=== PATIENT | female | born 1970 | race Caucasian/White ===

== ENCOUNTER → 2018-08-19 | Outpatient (CLI) | payer BC ==
[~2018-08-19] MED LIST: IOHEXOL 350 MG/ML 100 ML (OMNIPAQUE 350) VIAL IV ONE; NAPR-243 PO; NS 250 ML (IVPB) BAG IV ONE
--- NOTE | 2018-08-19 09:40 | Diagnostic Imaging Report ---
PROCEDURE: CT abdomen and pelvis with contrast. TECHNIQUE: Multiple contiguous axial images were obtained through the abdomen and pelvis after administration of intravenous contrast. INDICATION: Right lower quadrant abdominal pain. FINDINGS: No focal hepatic or splenic lesion is identified. Gallbladder, pancreas and adrenal glands are also unremarkable. No renal abnormality is seen. There is no free fluid or evidence of pathologic adenopathy in the abdomen. Partially opacified urinary bladder is a normal appearance. There is no evidence of appendiceal inflammation. No organized fluid collection is identified. Nodular structures and inguinal regions are likely due to varices with occasional small inguinal lymph nodes. IMPRESSION: No CT evidence of acute abnormality within the abdomen or pelvis. Dictated by: Dictated on workstation # [id number]
== END ==
LOC: RAD 08:49
PROVIDERS: ATTEND Family Medicine
DX: R10.31 Right lower quadrant pain (principal); R10.13 Epigastric pain; R19.7 Diarrhea, unspecified
CPT/HCPCS: 74177

== ENCOUNTER → 2018-09-21 | Outpatient (CLI) | payer BC ==
[~2018-09-21] MED LIST changes: +CYCL10TA9 PO; -IOHEXOL 350 MG/ML 100 ML (OMNIPAQUE 350) VIAL IV ONE; -NS 250 ML (IVPB) BAG IV ONE
--- NOTE | 2018-09-21 11:36 | Diagnostic Imaging Report ---
PROCEDURE: US Gallbladder. TECHNIQUE: Multiple real-time grayscale images were obtained over the right upper quadrant in various projections. INDICATION: Abdominal pain. FINDINGS: The liver is normal in size at 16 cm. No discrete liver mass is identified. The gallbladder is without stones or sludge. No wall thickening or biliary ductal dilatation is seen. Pancreas was obscured by bowel gas. The right kidney is unremarkable. There is no ascites. IMPRESSION: No evidence of cholelithiasis or acute cholecystitis. Dictated by: Dictated on workstation # [id number]
== END ==
LOC: RAD 07:34
PROVIDERS: ATTEND Surgery
DX: R10.9 Unspecified abdominal pain (principal)
CPT/HCPCS: 76705

== ENCOUNTER → 2018-09-23 | Outpatient (CLI) | payer BC ==
[~2018-09-23] MED LIST changes: +CATHETER FLUSH 10 ML SYR IV PRN
--- NOTE | 2018-09-23 09:28 | Diagnostic Imaging Report ---
HEPATOBILIARY SCAN DATE: September 23, 2018. INDICATION: 48-year-old female, abdominal pain. PROCEDURE: 5.30 mCi of Tc-99m choletec was administered intravenously and serial anterior planar images over the liver and upper abdomen were obtained. FINDINGS: There is homogenous activity throughout the liver with good clearance of background activity. This indicates good hepatocellular function. Biliary tree activity is seen at 10 minutes. The gallbladder is seen at 15 minutes. There is no enterogastric reflux. The biliary tree is patent. There is no evidence of acute cholecystitis. Ensure was administered. Gallbladder ejection fraction was calculated to be 84%. IMPRESSION: Normal hepatobiliary scan. No evidence of acute or chronic cholecystitis. Dictated by: Dictated on workstation # [id number]
== END ==
LOC: CARD 06:34
PROVIDERS: ATTEND Surgery
DX: R10.9 Unspecified abdominal pain (principal)
CPT/HCPCS: 78227

== ENCOUNTER 2018-09-25 08:03 | Emergency (ER) | payer BC ==
[~2018-09-25] VITALS: Ht 162.6 cm; Wt 81.6 kg
[~2018-09-25 08:03] MED LIST changes: -CATHETER FLUSH 10 ML SYR IV PRN; -CYCL10TA9 PO
[2018-09-25 09:14] LABS: BASOPHILS % (AUTO) 0 % (0-10); BILIRUBIN,URINE NEGATIVE (NEGATIVE); CLARITY,URINE CLEAR; COLOR,URINE YELLOW; EOSINOPHILS # (AUTO) 0.1 10^3/uL (0.0-0.3); EOSINOPHILS % (AUTO) 1 % (0-10); GLUCOSE, URINE (UA) NEGATIVE (NEGATIVE); HEMATOCRIT 39 % (35-52); KETONES,URINE NEGATIVE (NEGATIVE); LEUKOCYTE ESTERASE ,URINE 1+ (NEGATIVE); LYMPHOCYTES # (AUTO) 2.2 X 10^3 (1.0-4.0); LYMPHOCYTES % (AUTO) 27 % (12-44); MEAN CORPUSCULAR HEMOGLOBIN 30 PG (25-34); MEAN CORPUSCULAR HGB CONC 33 G/DL (32-36); MEAN CORPUSCULAR VOLUME 90 FL (80-99); MEAN PLATELET VOLUME 9.3 FL (7.4-10.4); MONOCYTES # (AUTO) 0.6 X 10^3 (0.0-1.0); MONOCYTES % (AUTO) 7 % (0-12); NEUTROPHILS # (AUTO) 5.4 X 10^3 (1.8-7.8); NEUTROPHILS % (AUTO) 65 % (42-75); NITRITE,URINE NEGATIVE (NEGATIVE); PH,URINE 5 (5-9); PLATELET COUNT 342 10^3/uL (130-400); PROTEIN,URINE NEGATIVE (NEGATIVE); RED BLOOD COUNT 4.39 10^6/uL (4.35-5.85); RED CELL DISTRIBUTION WIDTH 12.7 % (10.0-14.5); UROBILINOGEN,URINE NORMAL (NORMAL); WHITE BLOOD COUNT 8.3 10^3/uL (4.3-11.0)
[2018-09-25 09:22] LABS: BACTERIA,URINE NEGATIVE /HPF; WBC,URINE RARE /HPF
[2018-09-25 09:28] LABS: ALANINE AMINOTRANSFERASE 21 U/L (0-55); ALBUMIN 4.6 GM/DL (3.2-4.5); ALKALINE PHOSPHATASE 66 U/L (40-136); AMYLASE 44 U/L (25-125); BILIRUBIN,TOTAL 0.4 MG/DL (0.1-1.0); BUN/CREATININE RATIO 15; CALCIUM 10.1 MG/DL (8.5-10.1); CARBON DIOXIDE 24 MMOL/L (21-32); CHLORIDE 105 MMOL/L (98-107); CREATININE SERUM 0.74 MG/DL (0.60-1.30); GFR ESTIMATED > 60; GLUCOSE 98 MG/DL (70-105); LIPASE 11 U/L (8-78); POTASSIUM 3.9 MMOL/L (3.6-5.0); SODIUM 140 MMOL/L (135-145); TOTAL PROTEIN 8.3 GM/DL (6.4-8.2)
[2018-09-25] MEDS ORDERED: KETOROLAC 30 MG/ML VIAL IVP STA (10:15)
--- NOTE | 2018-09-25 10:36 | ED Abdominal Pain ---
General Chief Complaint: Abdominal/GI Problems Stated Complaint: PAIN L ABD/BACK Nursing Triage Note: PT CO OF ABD PAIN FOR APPROX 1 MONTH ON AND OFF HAS HAD NUMEROUS TESTS PAST COUPLE WEEKS TO CHECK ON GALLBLADDER PROBLEMS. PT DENIES PAIN AT THIS X BUT WAS 10/10 WHEN OCCURRED EARLIER ON L SIDE ABD Sepsis Screen: No Definite Risk Source of Information: Patient Exam Limitations: No Limitations History of Present Illness Date Seen by Provider: Sep 25, 2018 Time Seen by Provider: 10:00 Initial Comments Here with report of left-sided back pain and abdominal pain in the epigastric region. She is concerned about her gallbladder. She has been evaluated and has appointment with Dr. Terry tomorrow. Recently had gallbladder ultrasound and HIDA scan and they're looking for gallbladder as cause for this. Also admits that she's been doing a moderate amount of lifting at work and has possibility of muscle strain to the back on the left side. She has not taken anything for that at this point. Denies nausea or vomiting. Overall feels a little better currently. Timing/Duration: 1 Week, Intermittent Severity/Quality: Mild, Moderate, Aching Location: Epigastric Radiation: Back Activities at Onset: None Associated Symptoms: Back Pain; No Fever/Chills, No Nausea/Vomiting, No Shortness of Air, No Weakness Allergies and Home Medications Allergies Coded Allergies: No Known Drug Allergies (Verified , 04/06/08) Patient Home Medication List Home Medication List Reviewed: Yes Review of Systems Review of Systems Constitutional: see HPI; No chills, No fever Respiratory: No Symptoms Reported Cardiovascular: No Symptoms Reported Gastrointestinal: Abdominal Pain; Denies Diarrhea, Denies Nausea Genitourinary: No Symptoms Reported Musculoskeletal: back pain, muscle pain Skin: no symptoms reported All Other Systems Reviewed Negative Unless Noted: Yes Past Atwdqeu-Xqjhyl-Gqmetd Hx Past Med/Social Hx: Reviewed Nursing Past Med/Soc Hx Patient Social History Alcohol Use: Denies Use Recreational Drug Use: No Smoking Status: Never a Smoker Recent Foreign Travel: No Contact w/Someone Who Travel: No Recent Infectious Disease Expo: No Recent Hopitalizations: No Past Medical History Surgeries: Yes (D & C) Respiratory: No Cardiac: No Neurological: No Reproductive Disorders: Yes [employer] History: Menopausal Gastrointestinal: No Musculoskeletal: No Endocrine: No Psychosocial: No Blood Disorders: No Family Medical History Reviewed Nursing Family Hx Physical Exam Vital Signs Vital Signs - First Documented 09/25/18 08:35 Temp 97.5 Pulse 76 Resp 18 B/P (MAP) 141/81 (101) Pulse Ox 100 Capillary Refill : Less Than 3 Seconds Height/Weight/BMI Height: 5'4.00" Weight: 180lbs. oz. 81.500597bk; BMI Method:Stated General Appearance: WD/WN, no apparent distress HEENT: PERRL/EOMI, pharynx normal Neck: full range of motion, supple Respiratory: lungs clear, normal breath sounds Cardiovascular: regular rate, rhythm, no murmur Gastrointestinal: non tender, soft Extremities: non-tender, normal inspection Neurologic/Psychiatric: alert, oriented x 3 Skin: normal color, warm/dry Progress/Results/Core Measures Results/Orders Lab Results Laboratory Tests Test 09/25/18 08:40 Range/Units White Blood Count 8.3 4.3-11.0 10^3/uL Red Blood Count 4.39 4.35-5.85 10^6/uL Hemoglobin 13.0 11.5-16.0 G/DL Hematocrit 39 35-52 % Mean Corpuscular Volume 90 80-99 FL Mean Corpuscular Hemoglobin 30 25-34 PG Mean Corpuscular Hemoglobin Concent 33 32-36 G/DL Red Cell Distribution Width 12.7 10.0-14.5 % Platelet Count 342 130-400 10^3/uL Mean Platelet Volume 9.3 7.4-10.4 FL Neutrophils (%) (Auto) 65 42-75 % Lymphocytes (%) (Auto) 27 12-44 % Monocytes (%) (Auto) 7 0-12 % Eosinophils (%) (Auto) 1 0-10 % Basophils (%) (Auto) 0 0-10 % Neutrophils # (Auto) 5.4 1.8-7.8 X 10^3 Lymphocytes # (Auto) 2.2 1.0-4.0 X 10^3 Monocytes # (Auto) 0.6 0.0-1.0 X 10^3 Eosinophils # (Auto) 0.1 0.0-0.3 10^3/uL Basophils # (Auto) 0.0 0.0-0.1 10^3/uL Urine Color YELLOW Urine Clarity CLEAR Urine pH 5 5-9 Urine Specific [place] 1.025 H 1.016-1.022 Urine Protein NEGATIVE NEGATIVE Urine Glucose (UA) NEGATIVE NEGATIVE Urine Ketones NEGATIVE NEGATIVE Urine Nitrite NEGATIVE NEGATIVE Urine Bilirubin NEGATIVE NEGATIVE Urine Urobilinogen NORMAL NORMAL MG/DL Urine Leukocyte Esterase 1+ H NEGATIVE Urine RBC (Auto) 2+ H NEGATIVE Urine RBC NONE /HPF Urine WBC RARE /HPF Urine Squamous Epithelial Cells 2-5 /HPF Urine Crystals NONE /LPF Urine Bacteria NEGATIVE /HPF Urine Casts NONE /LPF Urine Mucus NEGATIVE /LPF Urine Culture Indicated NO Sodium Level 140 135-145 MMOL/L Potassium Level 3.9 3.6-5.0 MMOL/L Chloride Level 105 98-107 MMOL/L Carbon Dioxide Level 24 21-32 MMOL/L Anion Gap 11 5-14 MMOL/L Blood Urea Nitrogen 11 7-18 MG/DL Creatinine 0.74 0.60-1.30 MG/DL Estimat Glomerular Filtration Rate > 60 BUN/Creatinine Ratio 15 Glucose Level 98 70-105 MG/DL Calcium Level 10.1 8.5-10.1 MG/DL Corrected Calcium 8.5-10.1 MG/DL Total Bilirubin 0.4 0.1-1.0 MG/DL Aspartate Amino Transf (AST/SGOT) 18 5-34 U/L Alanine Aminotransferase (ALT/SGPT) 21 0-55 U/L Alkaline Phosphatase 66 40-136 U/L Total Protein 8.3 H 6.4-8.2 GM/DL Albumin 4.6 H 3.2-4.5 GM/DL Amylase Level 44 25-125 U/L Lipase 11 8-78 U/L My Orders Orders - CLARITA FARR MD Comprehensive Metabolic Panel (09/25/18 09:04) Lipase (09/25/18 09:04) Amylase (09/25/18 09:04) Ua Culture If Indicated (09/25/18 09:04) Cbc With Automated Diff (09/25/18 09:04) Ketorolac Injection (Toradol Injection) (09/25/18 10:15) Vital Signs/I&O 09/25/18 08:35 Temp 97.5 Pulse 76 Resp 18 B/P (MAP) 141/81 (101) Pulse Ox 100 Blood Pressure Mean: 101 Progress Progress Note : Progress Note Seen and evaluated. IV, labs ordered. UA ordered. On her patient. Toradol 30 mg IV. No acute findings. I have reviewed previous evaluation including HIDA scan gallbladder ultrasound. No acute findings there. No indications of significant abnormality currently. She has appointment with Dr. Terry tomorrow. Given her work environment and lifting requirements, this may be related to musculoskeletal strain. She does need further evaluation. The surgeon for possible endoscopy and she has that appointment tomorrow. Discharged home with return precautions. Patient verbalize understanding instructions and agreement with plan. Departure Impression Primary Impression: Epigastric abdominal pain Additional Impression: Back strain Qualified Codes: S39.012A - Strain of muscle, fascia and tendon of lower back , initial encounter Disposition: HOME, SELF-CARE Condition: Improved Departure-Patient Inst. Decision time for Depature: 10:57 Referrals: JORGE L RAM (PCP) Primary Care Physician LESLYE BRADLEY MD (Family) Primary Care Physician Patient Instructions: Acute Abdomen (Belly Pain), Adult (DC), Muscle Strain (DC ) Add. Discharge Instructions: All discharge instructions reviewed with patient and/or family. Voiced understanding. You may take Tylenol/acetaminophen 1000 mg every 8 hours as needed for pain. Follow-up with Dr. Terry tomorrow as scheduled. Return for worse pain, fever, vomiting, weakness, breathing problems or other concerns as needed. Eat a light diet and avoid fatty foods. Scripts Cyclobenzaprine HCl (Cyclobenzaprine HCl) 10 Mg Tablet 10 MG PO Q8H PRN for SPASMS, #15 TAB 0 Refills Prov: CLARITA FARR MD 09/25/18 CLARITA FARR MD Sep 25, 2018 10:36
[2018-09-25] MEDS ORDERED: CYCL10TA9 PO (10:59)
[2018-09-25 11:17] VITALS: BP 141/81
== END 2018-09-25 11:20 | disposition home or self-care (01) ==
LOC: EDUNIT# 08:03 → ER 08:04
DX: S39.012A Strain of muscle, fascia and tendon of lower back, initial encounter (principal); R10.13 Epigastric pain; X50.1XXA Overexertion from prolonged static or awkward postures, initial encounter; Y92.59 Other trade areas as the place of occurrence of the external cause; Y99.0 Civilian activity done for income or pay
CPT/HCPCS: 36415; 80053; 81000; 82150; 83690; 85025

== ENCOUNTER 2018-09-30 05:29 | Outpatient (CLI) | payer BC ==
[~2018-09-30] VITALS: Ht 162.6 cm; Wt 91.4 kg
[~2018-09-30 05:29] MED LIST changes: +CYCL10TA9 PO
[2018-10-03] MEDS ORDERED: DOCU-143 PO (15:45)
[2018-10-03] MEDS ORDERED: ACHD5005 PO (15:45)
== END 2018-09-30 08:54 | disposition home or self-care (01) ==
LOC: PREOP 05:29
PROVIDERS: ATTEND Surgery
DX: Z01.818 Encounter for other preprocedural examination (principal)
CPT/HCPCS: 87081

== ENCOUNTER → 2018-10-03 | Day surgery (SDC) | payer BC ==
[~2018-10-03] VITALS: Ht 162.6 cm; Wt 91.4 kg
[~2018-10-03] MED LIST changes: +ACHD5005 PO; +BUPIVACAINE 0.5% 30 ML (SENSORCAINE) VIAL ONE; +DEXAMETHASONE 10 MG/ML (DECADRON) 1 ML VIAL ONE; +DOCU-143 PO; +GLYCOPYRROLATE 0.2 MG/ML (ROBINUL) 2 ML VIAL ONE; +LACTATED RINGERS 1,000 ML IV ONE; +LIDOCAINE 1% INJ 20 ML 20 ML VIAL ONE; +LIDOCAINE PF 2% 5 ML (XYLOCAINE) VIAL ONE; +MIDAZOLAM 2 MG/2 ML (VERSED) VIAL ONE; +NEOSTIGMINE 1 MG/ML 5 ML SYRINGE ONE; +ONDANSETRON 4 MG/2 ML (SDV) Z0FRAN IVP PRN; +ROCURONIUM 10 MG/ML 5 ML SYRINGE IV ONE; +SEVOFLURANE (ULTANE) 15 ML INHAL SOLN ONE; +ceFAZolin 2 GM IV Premixed 50 ML IV ONE; +fentaNYL INJECTION 100 MCG/2 ML AMP ONE; +morphine INJ 10 MG/ML 1ML (SYR OR VIAL) IVP ONE; +proPOfol 200 MG/20 ML (DIPRIVAN) VIAL IV ONE
[2018-10-03 09:30] VITALS: BP 136/78
[2018-10-03] MEDS: LACTATED RINGERS 1,000 ML IV PRN ×2 (09:54→15:45)
--- NOTE | 2018-10-03 14:11 | Progress Note-Pre Operative ---
Pre-Operative Progress Note H&P Reviewed The H&P was reviewed, patient examined and no changes noted. Date Seen by Provider: Oct 03, 2018 Time Seen by Provider: 14:10 Date H&P Reviewed: Oct 03, 2018 Time H&P Reviewed: 14:10 Pre-Operative Diagnosis: ruq abdominal biliary dyskinesia JEFF LAWLER DO Oct 03, 2018 14:11
--- NOTE | 2018-10-03 15:46 | Discharge Inst-Simple/Standard ---
Discharge Inst-Standard Discharge Medications New, Converted or Re-Newed RX: RX on Chart Patient Instructions/Follow Up Plan of Care/Instructions/FU: 2 weeks Mara Activity as Tolerated: No Discharge Diet: Regular Diet Other Inst to Patient Follow up Appt: Make appointment for 2 weeks. Instructions: No lifting greater than 10 pounds. No strenuous activity. May shower in 24 hours, no tub bath or soaking. Use incentive spirometer at home as directed. No Smoking Skin/Wound Care: You have special glue over incisions it will fall off on its own. Symptoms to Report: Appetite Changes, Extremity Discoloration, Numbness/Tingling, Swelling Increased , Bleeding Excessive, Eyesight Changes, Pain Increased, Urine Color Change, Constipation(Persistent), Fever over 101 degree F, Pain/Pressure in chest, Urinating Difficulty, Cough Up/Vomit Blood, Heart Beat Irreg/Pounding, Pain/ Pressure in jaw, Vaginal Bleeding Increase, Cramps in feet or legs, Lightheadedness, Pain/Pressure in shoulder, Diarrhea(Persistent), Memory Changes Suddenly, Questions/Concerns, Weight gain consecutive days, Dizziness/ Fainting, Nausea/Vomiting, Shortness of Breath, Weight gain over 2 pounds. If eyes or skin turn yellow notify physician. If questions or concerns contact your physician Or seek help at emergency department. JEFF LAWLER DO Oct 03, 2018 15:46
--- NOTE | 2018-10-03 15:47 | Progress Note-Post Operative ---
Post-Operative Progess Note Surgeon (s)/Grinder (s) Surgeon JEFF LAWLER DO Grinder: Dr. Griffin Pre-Operative Diagnosis ruq abdominal biliary dyskinesia Post-Operative Diagnosis same Procedure & Operative Findings Date of Procedure 10/03/18 Procedure Performed/Findings lap tianna c ioc Anesthesia Type gen Estimated Blood Loss Estimated blood loss (mL): min Specimens/Packing Specimens Removed gallbladder JEFF LAWLER DO Oct 03, 2018 15:47
--- NOTE | 2018-10-03 16:19 | Anesthesia-General Post-Op ---
General Patient Condition Mental Status/LOC: Same as Preop Cardiovascular: Satisfactory Nausea/Vomiting: Absent Respiratory: Satisfactory Pain: Controlled Complications: Absent Post Op Complications Complications None Follow Up Care/Instructions Patient Instructions None needed. Anesthesia/Patient Condition Patient Condition Patient is doing well, no complaints, stable vital signs, no apparent adverse anesthesia problems. No complications reported per nursing. YUE DAVIS CRNA Oct 03, 2018 16:19
[2018-10-03] MEDS: morphine INJ 10 MG/ML 1ML (SYR OR VIAL) ONE ×2 (16:26→17:19)
[2018-10-03 16:55] VITALS: BP 131/84
--- NOTE | 2018-10-03 16:55 | Diagnostic Imaging Report ---
INDICATION: Fluoroscopy for intraoperative cholangiogram. FINDINGS: Fluoroscopy was provided in the OR during intraoperative cholangiogram. 9 seconds of fluoroscopy was utilized. Images demonstrate contrast being injected via the cystic duct remnant. The intrahepatic and extrahepatic ducts are opacified and appear to be of normal caliber. No filling defects are seen to suggest a retained stone. There is contrast passing into the duodenum. IMPRESSION: Fluoroscopy during intraoperative cholangiogram. Dictated by: Dictated on workstation # [id number]
[2018-10-03 17:30] VITALS: BP 133/86
[2018-10-03 18:00] VITALS: BP 116/89
[2018-10-03 18:25] VITALS: BP 116/89
--- NOTE | 2018-10-04 03:05 | OPERATIVE REPORT ---
DATE OF SERVICE: 10/03/2018 PREOPERATIVE DIAGNOSIS: Right upper quadrant abdominal pain, biliary dyskinesia, hyperactive. POSTOPERATIVE DIAGNOSIS: Right upper quadrant abdominal pain, biliary dyskinesia, hyperactive. PROCEDURE: Laparoscopic cholecystectomy with intraoperative cholangiogram. SURGEON: Jeff Terry DO HOUSING INSPECTORS: Dr. Griffin, assisted in retraction, dissection and closure. ANESTHESIA: General. ESTIMATED BLOOD LOSS: Minimal. COMPLICATIONS: None. INDICATIONS: The patient is a 48-year-old female who had been having abdominal pain primarily right upper quadrant. She had a HIDA scan, had an ejection fraction of greater than 80%. She was discussed risks and benefits of having a cholecystectomy may or may not improve her symptoms. She understands risks and benefits and wished to proceed with procedure. Consent was signed on the chart. DESCRIPTION OF PROCEDURE: The patient was taken to the operating suite. She was prepped and draped in sterile fashion. Surgical pause was performed. Anthony technique was used to enter the abdomen just above the umbilicus. A 0 Vicryl was placed in a [id number] fashion for closure at the end. A balloon trocar was inserted in through the incision and pneumoperitoneum was achieved. Under direct visualization of the laparoscope, a 5 mm trocar was then placed in the subxiphoid region and two 5 mm trocars were placed in the right upper quadrant. Gallbladder was grasped, elevated. The cystic duct and cystic artery were then dissected around. Clips were placed on the proximal and distal portion of the cystic artery and a clip was placed on the distal portion of the cystic duct. The cystic duct was then partially transected and arrow catheter was then inserted and cholangiogram was performed. There were no filling defects. Contrast made its way into the duodenum without difficulty. The catheter was then removed. Clips were placed on the proximal portion of the cystic duct and the cystic duct and cystic arteries were then transected. Hook cautery was used to dissect the gallbladder from the gallbladder fossa achieving hemostasis. Once removed, it was placed in an Endobag and removed through the 12 mm trocar site. The abdomen was irrigated with copious amounts of irrigation and suction. The abdomen was then desufflated. Trocars were removed. The fascial defect with 0 Vicryl was then closed. The skin was then closed using 4-0 Monocryl in a subcuticular fashion. The abdomen was then washed and dried and Skin Affix was placed over the incisions. The patient tolerated procedure well without any complications. She was taken to recovery room in stable condition. Job ID: [id number] DocumentID: [id number] Dictated Date: 10/03/2018 16:37:37 Senior Structural Engineer Date: 10/04/2018 03:04:29 Dictated By: JEFF TERRY DO
== END | disposition home or self-care (01) ==
LOC: SDC 09:15
PROVIDERS: ATTEND Surgery
DX: K81.1 Chronic cholecystitis (principal); K82.8 Other specified diseases of gallbladder
CPT/HCPCS: 84703

== ENCOUNTER 2020-01-09 21:09 | Emergency (ER) | payer BC ==
[~2020-01-09] VITALS: Ht 157 cm; Wt 90.7 kg
[~2020-01-09 21:09] MED LIST changes: -BUPIVACAINE 0.5% 30 ML (SENSORCAINE) VIAL ONE; -DEXAMETHASONE 10 MG/ML (DECADRON) 1 ML VIAL ONE; -GLYCOPYRROLATE 0.2 MG/ML (ROBINUL) 2 ML VIAL ONE; -LACTATED RINGERS 1,000 ML IV ONE; -LIDOCAINE 1% INJ 20 ML 20 ML VIAL ONE; -LIDOCAINE PF 2% 5 ML (XYLOCAINE) VIAL ONE; -MIDAZOLAM 2 MG/2 ML (VERSED) VIAL ONE; -NEOSTIGMINE 1 MG/ML 5 ML SYRINGE ONE; -ONDANSETRON 4 MG/2 ML (SDV) Z0FRAN IVP PRN; -ROCURONIUM 10 MG/ML 5 ML SYRINGE IV ONE; -SEVOFLURANE (ULTANE) 15 ML INHAL SOLN ONE; -ceFAZolin 2 GM IV Premixed 50 ML IV ONE; -fentaNYL INJECTION 100 MCG/2 ML AMP ONE; -morphine INJ 10 MG/ML 1ML (SYR OR VIAL) IVP ONE; -proPOfol 200 MG/20 ML (DIPRIVAN) VIAL IV ONE
[2020-01-09 21:27] LABS: BASOPHILS % (AUTO) 0 % (0-10); EOSINOPHILS # (AUTO) 0.1 10^3/uL (0.0-0.3); EOSINOPHILS % (AUTO) 1 % (0-10); HEMATOCRIT 40 % (35-52); LYMPHOCYTES # (AUTO) 3.5 X 10^3 (1.0-4.0); LYMPHOCYTES % (AUTO) 32 % (12-44); MEAN CORPUSCULAR HEMOGLOBIN 30 PG (25-34); MEAN CORPUSCULAR HGB CONC 33 G/DL (32-36); MEAN CORPUSCULAR VOLUME 90 FL (80-99); MEAN PLATELET VOLUME 9.3 FL (7.4-10.4); MONOCYTES # (AUTO) 0.8 X 10^3 (0.0-1.0); MONOCYTES % (AUTO) 7 % (0-12); NEUTROPHILS # (AUTO) 6.4 X 10^3 (1.8-7.8); NEUTROPHILS % (AUTO) 59 % (42-75); PLATELET COUNT 405 10^3/uL (130-400); RED CELL DISTRIBUTION WIDTH 12.5 % (10.0-14.5); WHITE BLOOD COUNT 10.8 10^3/uL (4.3-11.0)
--- NOTE | 2020-01-09 21:29 | ED Chest Pain ---
General Chief Complaint: Chest Pain Stated Complaint: CHEST PAIN Source: patient Exam Limitations: no limitations History of Present Illness Date Seen by Provider: Jan 09, 2020 Time Seen by Provider: 21:13 Initial Comments The patient arrives to the ER by private conveyance with her significant other and chief complaint that about 10 minutes prior to arrival she was sitting at [facility] and had taken one bite of her food when she began to express a sharp, 10 out of 10 stabbing pain from her low back radiating forward into her epigastric region. She describes as chest pain. She says she had chest pain worked up about a year ago and was told she had an anxiety attack. She has no known history of coronary disease or lung disease. She's having no shortness of breath nausea diarrhea or constipation. She had a normal bowel movement earlier today. She had her gallbladder out historically but no other abdominal surgeries. No trauma. No rash fevers or chills. No familial history of early- onset coronary disease. No smoking, hyperlipidemia, pancreatitis, diabetes or hypertension. She does not take any medications routinely. She does not use drugs or drink alcohol. She said the pain was worse with movement or trying to walk and especially worse on the car ride over with every bump. Allergies and Home Medications Allergies Coded Allergies: No Known Drug Allergies (Unverified , 09/30/18) Home Medications Docusate Sodium 100 Mg Capsule, 100 MG PO DAILY Prescribed by: JEFF LAWLER on 10/03/18 1545 Hydrocodone Bit/Acetaminophen 1 Tab Tab, 1-2 TAB PO Q6H PRN for PAIN-MODERATE Prescribed by: JEFF LAWLER on 10/03/18 1545 Omeprazole 20 Mg Capsule.dr, 20 MG PO BID Prescribed by: GELA SENIOR on 01/09/202249 Sucralfate 1 Gm Tablet, 1 GM PO QIDACHS Prescribed by: GELA SENIOR on 01/09/202249 Patient Home Medication List Home Medication List Reviewed: Yes Review of Systems Review of Systems Constitutional: No chills, No fever EENTM: No Blurred Vision, No Double Vision Respiratory: Denies Cough, Denies Shortness of Air Cardiovascular: See HPI, Chest Pain Gastrointestinal: See HPI; Denies Abdomen Distended; Abdominal Pain; Denies Constipated, Denies Diarrhea, Denies Nausea, Denies Poor Fluid Intake, Denies Vomiting Genitourinary: Denies Burning, Denies Discharge Musculoskeletal: see HPI, back pain; No joint pain Skin: No change in color, No pruritus, No rash Psychiatric/Neurological: Denies Anxiety, Denies Depressed All Other Systems Reviewed Negative Unless Noted: Yes Past Nygparm-Yoghbw-Lmlhbk Hx Patient Social History Alcohol Use: Denies Use Recreational Drug Use: No Smoking Status: Never a Smoker Recent Foreign Travel: No Contact w/Someone Who Travel: No Recent Hopitalizations: No Seasonal Allergies Seasonal Allergies: No Past Medical History Surgeries: Yes (D & C) Respiratory: No Cardiac: No Neurological: No 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 9.0oz. 91.847061mv; 34.6 BMI Method:Stated General Appearance: No Apparent Distress, WD/WN HEENT: Normal ENT Inspection, Pharynx Normal, Moist Mucous Membranes Neck: Full Range of Motion, Normal Inspection, Non Tender Respiratory: Chest Non Tender, Lungs Clear, Normal Breath Sounds, No Accessory Muscle Use, No Respiratory Distress Cardiovascular: Regular Rate, Rhythm, No Edema, Normal Peripheral Pulses Gastrointestinal: Normal Bowel Sounds, No Organomegaly, Soft, Tenderness (epigastric with negative for Bocanegra sign or McBurney's point tenderness. No Rovsing sign or psoas sign.) Extremity: Normal Capillary Refill, Normal Inspection, Normal Range of Motion, Non Tender, No Pedal Edema Neurologic/Psychiatric: Alert, Oriented x3, No Motor/Sensory Deficits, Normal Mood/Affect Skin: Normal Color, Warm/Dry Progress/Results/Core Measures Results/Orders Lab Results Laboratory Tests Test 01/09/20 21:18 01/09/20 21:41 01/09/20 23:00 Range/Units White Blood Count 10.8 4.3-11.0 10^3/uL Red Blood Count 4.40 4.35-5.85 10^6/uL Hemoglobin 13.0 11.5-16.0 G/DL Hematocrit 40 35-52 % Mean Corpuscular Volume 90 80-99 FL Mean Corpuscular Hemoglobin 30 25-34 PG Mean Corpuscular Hemoglobin Concent 33 32-36 G/DL Red Cell Distribution Width 12.5 10.0-14.5 % Platelet Count 405 H 130-400 10^3/uL Mean Platelet Volume 9.3 7.4-10.4 FL Neutrophils (%) (Auto) 59 42-75 % Lymphocytes (%) (Auto) 32 12-44 % Monocytes (%) (Auto) 7 0-12 % Eosinophils (%) (Auto) 1 0-10 % Basophils (%) (Auto) 0 0-10 % Neutrophils # (Auto) 6.4 1.8-7.8 X 10^3 Lymphocytes # (Auto) 3.5 1.0-4.0 X 10^3 Monocytes # (Auto) 0.8 0.0-1.0 X 10^3 Eosinophils # (Auto) 0.1 0.0-0.3 10^3/uL Basophils # (Auto) 0.0 0.0-0.1 10^3/uL Prothrombin Time 13.0 12.2-14.7 SEC INR Comment 0.9 0.8-1.4 Activated Partial Thromboplast Time 31 24-35 SEC D-Dimer 0.20 0.00-0.49 UG/ML Sodium Level 138 135-145 MMOL/L Potassium Level 3.8 3.6-5.0 MMOL/L Chloride Level 103 98-107 MMOL/L Carbon Dioxide Level 25 21-32 MMOL/L Anion Gap 10 5-14 MMOL/L Blood Urea Nitrogen 17 7-18 MG/DL Creatinine 0.83 0.60-1.30 MG/DL Estimat Glomerular Filtration Rate > 60 BUN/Creatinine Ratio 20 Glucose Level 114 H 70-105 MG/DL Calcium Level 9.6 8.5-10.1 MG/DL Corrected Calcium 8.5-10.1 MG/DL Magnesium Level 2.0 1.6-2.4 MG/DL Total Bilirubin 0.3 0.1-1.0 MG/DL Aspartate Amino Transf (AST/SGOT) 16 5-34 U/L Alanine Aminotransferase (ALT/SGPT) 18 0-55 U/L Alkaline Phosphatase 67 40-136 U/L Myoglobin 44.3 10.0-92.0 NG/ML Troponin I < 0.028 < 0.028 <0.028 NG/ML Total Protein 8.1 6.4-8.2 GM/DL Albumin 4.6 H 3.2-4.5 GM/DL Lipase 15 8-78 U/L Serum Test, Qualitative NEGATIVE NEGATIVE Urine Color YELLOW Urine Clarity CLEAR Urine pH 5.5 5-9 Urine Specific [place] >=1.030 1.016-1.022 Urine Protein NEGATIVE NEGATIVE Urine Glucose (UA) NEGATIVE NEGATIVE Urine Ketones NEGATIVE NEGATIVE Urine Nitrite NEGATIVE NEGATIVE Urine Bilirubin NEGATIVE NEGATIVE Urine Urobilinogen 0.2 < = 1.0 MG/DL Urine Leukocyte Esterase NEGATIVE NEGATIVE Urine RBC (Auto) 1+ H NEGATIVE Urine RBC 2-5 H /HPF Urine WBC NONE /HPF Urine Crystals PRESENT H /LPF Urine Amorphous Sediment RARE ALEXY URATES H /LPF Urine Bacteria TRACE /HPF Urine Casts NONE /LPF Urine Mucus NEGATIVE /LPF Urine Culture Indicated NO Urine Opiates Screen NEGATIVE NEGATIVE Urine Oxycodone Screen NEGATIVE NEGATIVE Urine Methadone Screen NEGATIVE NEGATIVE Urine Propoxyphene Screen NEGATIVE NEGATIVE Urine Barbiturates Screen NEGATIVE NEGATIVE Ur Tricyclic Antidepressants Screen NEGATIVE NEGATIVE Urine Phencyclidine Screen NEGATIVE NEGATIVE Urine Amphetamines Screen NEGATIVE NEGATIVE Urine Methamphetamines Screen NEGATIVE NEGATIVE Urine Benzodiazepines Screen NEGATIVE NEGATIVE Urine Cocaine Screen NEGATIVE NEGATIVE Urine Cannabinoids Screen NEGATIVE NEGATIVE My Orders Orders - NADEEN,GELA J Cbc With Automated Diff (01/09/20 21:22) Magnesium (01/09/20 21:22) Chest 1 View, Ap/Pa Only (01/09/20 21:22) Ekg Tracing (01/09/20 21:22) Comprehensive Metabolic Panel (01/09/20 21:22) Myoglobin Serum (01/09/20 21:22) Protime With Inr (01/09/20 21:22) Partial Thromboplastin Time (01/09/20 21:22) O2 (01/09/20 21:22) Monitor-Rhythm Ecg Trace Only (01/09/20 21:22) Lipid Panel (01/10/20 06:00) Ed Iv/Invasive Line Start (01/09/20 21:22) Lipase (01/09/20 21:22) Fibrin Degradation Products (01/09/20 21:22) Nitroglycerin 0.4 Mg Btl 25's (Nitrostat (01/09/20 21:30) Aspirin Chewable Tablet (Baby Aspirin Ch (01/09/20 21:30) Pantoprazole Injection (Protonix Injecti (01/09/20 21:30) Troponin I (01/09/20 21:18) Ua Culture If Indicated (01/09/20 21:32) Drug Screen Stat (Urine) (01/09/20 21:32) Hcg,Qualitative Serum (01/09/20 21:32) Lidocaine 2% Viscous 15 Ml (Xylocaine Vi (01/09/20 21:45) Antacid Suspension (Mylanta Suspension (01/09/20 21:45) Troponin I (01/09/20 22:50) Medications Given in ED Current Medications Medications Dose Ordered Sig/Braxton Route Start Time Stop Time Status Last Admin Dose Admin Al Hydrox/Mg Hydrox/Simethicone 30 ml ONCE ONCE PO 01/09/20 21:45 01/09/20 21:46 DC 01/09/20 21:58 30 ML Aspirin 324 mg ONCE ONCE PO 01/09/20 21:30 01/09/20 21:31 DC 01/09/20 21:33 324 MG Lidocaine HCl 15 ml ONCE ONCE PO 01/09/20 21:45 01/09/20 21:46 DC 01/09/20 21:58 15 ML Pantoprazole 40 mg ONCE ONCE IV 01/09/20 21:30 01/09/20 21:31 DC 01/09/20 21:34 40 MG Vital Signs/I&O 01/09/20 01/09/20 21:13 21:13 Temp 36.7 Pulse 86 Resp 18 B/P (MAP) 158/77 (104) O2 Delivery Room Air Room Air Progress Progress Note #1: Time: 21:27 Progress Note Musculoskeletal back pain? Pancreatitis, ureteral stone, gastritis are all possibilities. Much less likely a AAA dissection. Patient's vital signs are stable. We will trial nitroglycerin first as well as give her a dose of aspirin to chew and swallow. Chest x-ray thinking about potential a atypical angina. Her chest pain however seems to be more associated with her mid back and epigastric abdominal area. She is not having shortness of breath so pneumothorax seems less likely. Well's score for PE: 0.0 points; Low risk group: 1.3% chance of PE [facility]. PERC Criteria: 0 criteria; No need for further workup, as <2% chance of PE. If no criteria are positive and clinicians pre-test probability is <15%, PERC Rule criteria are satisfied. If nitroglycerin does not help her pain and we will trial a GI cocktail and based on urinalysis and labs to determine whether she needs a CT looking for kidney stones or abdominal viscera with IV contrast. Anxiety? Progress Note #2: Time: 22:48 Progress Note Two-hour delta troponin from time of pain starting would be 2300. Initial ECG Impression Date: Jan 09, 2020 Initial ECG Impression Time: 21:17 Initial ECG Rate: 80 Initial ECG Rhythm: Normal Sinus Initial ECG Intervals: Normal Initial ECG Impression: Normal Initial ECG Comparisson: Unchanged Comment Normal sinus rhythm without ST elevation or depression. Diagnostic Imaging Diagonstic Imaging: Xray Plain Films/CT/US/NM/MRI: chest (1v) Comments NAME: JOSE RAFAEL HARRINGTON burrp! REC#: [id number] PT STATUS: REG ER : 1970 PHYSICIAN: GELA SENIOR MD ADMIT DATE: 01/09/20/ER Draft Date of Exam:01/09/20 CHEST 1 VIEW, AP/PA ONLY INDICATION: Chest pain Single AP view of the chest is obtained with comparison made to study of 04/06/2008. FINDINGS: Heart size and pulmonary vascularity are within normal limits, and the lungs are clear, bilaterally. IMPRESSION: Unremarkable chest. Dictated on workstation # [id number] Dict: 01/09/20 214 Trans: 01/09/20 2143 [place] [id number] Interpreted by: IGOR EUGENE MD Electronically signed by: Reviewed: Reviewed by Me Departure Impression Primary Impression: Gastritis Qualified Codes: K29.00 - Acute gastritis without bleeding Disposition: HOME, SELF-CARE Condition: Improved Departure-Patient Inst. Decision time for Depature: 00:00 Referrals: LESLYE BRADLEY MD (PCP) Primary Care Physician JORGE L RAM (Family) Primary Care Physician JEFF LAWLER DO Patient Instructions: Gastritis (DC) Add. Discharge Instructions: Omeprazole 20 mg twice a day for the next 30 days. Carafate 1 tablet half an hour before meals and at bedtime for the next 2 weeks. Follow-up with your primary care doctor or the general surgeon Dr. Lawler if your symptoms persist beyond 2 weeks. All discharge instructions reviewed with patient and/or family. Voiced understanding. Scripts Sucralfate (Carafate) 1 Gm Tablet 1 GM PO QIDACHS for 14 Days, #56 TAB 0 Refills Prov: GELA SENIOR 01/09/20 Omeprazole (Omeprazole) 20 Mg Capsule. 20 MG PO BID for 30 Days, #60 CAP 0 Refills Prov: GELA SENIOR 01/09/20 Copy Copies To 1: JEFF LAWLER DO GELA SENIOR Jan 09, 2020 21:29
[2020-01-09] MEDS ORDERED: ASPIRIN 81 MG CHEW (CHILDREN'S ASA) PO ONE (21:30)
[2020-01-09] MEDS ORDERED: PANTOPRAZOLE 40 MG (PROTONIX) VIAL IV ONE (21:30)
[2020-01-09] MEDS ORDERED: NITROGLYCERIN 0.4 MG SL TABS BTL 25'S SL PRN (21:30)
--- NOTE | 2020-01-09 21:35 | NUR ---
DR. SENIOR NOTIFIED OF BP 123/65. VERBAL ORDERS TO HOLD NITRO SL ADMINISTRATION AND DR. SENIOR TO ORDER GI COCKTAIL.
--- NOTE | 2020-01-09 21:44 | Diagnostic Imaging Report ---
INDICATION: Chest pain Single AP view of the chest is obtained with comparison made to study of 04/06/2008. FINDINGS: Heart size and pulmonary vascularity are within normal limits, and the lungs are clear, bilaterally. IMPRESSION: Unremarkable chest. Dictated by: Dictated on workstation # [id number]
[2020-01-09 21:45] LABS: ALANINE AMINOTRANSFERASE 18 U/L (0-55); ALBUMIN 4.6 GM/DL (3.2-4.5); ALKALINE PHOSPHATASE 67 U/L (40-136); BILIRUBIN,TOTAL 0.3 MG/DL (0.1-1.0); BUN/CREATININE RATIO 20; CALCIUM 9.6 MG/DL (8.5-10.1); CARBON DIOXIDE 25 MMOL/L (21-32); CHLORIDE 103 MMOL/L (98-107); CREATININE SERUM 0.83 MG/DL (0.60-1.30); GFR ESTIMATED > 60; GLUCOSE 114 MG/DL (70-105); LIPASE 15 U/L (8-78); POTASSIUM 3.8 MMOL/L (3.6-5.0); SODIUM 138 MMOL/L (135-145); TOTAL PROTEIN 8.1 GM/DL (6.4-8.2)
[2020-01-09] MEDS ORDERED: ANTACID SUSP 30 ML UDC (MYLANTA) PO ONE (21:45)
[2020-01-09] MEDS ORDERED: LIDOCAINE 2% VISCOUS 15 ML UDC PO ONE (21:45)
[2020-01-09 21:48] LABS: BILIRUBIN,URINE NEGATIVE (NEGATIVE); CLARITY,URINE CLEAR; COLOR,URINE YELLOW; GLUCOSE, URINE (UA) NEGATIVE (NEGATIVE); KETONES,URINE NEGATIVE (NEGATIVE); LEUKOCYTE ESTERASE ,URINE NEGATIVE (NEGATIVE); NITRITE,URINE NEGATIVE (NEGATIVE); PH,URINE 5.5 (5-9); PROTEIN,URINE NEGATIVE (NEGATIVE)
[2020-01-09 22:08] LABS: BACTERIA,URINE TRACE /HPF
[2020-01-09 22:09] LABS: AMORPHOUS SEDIMENT,UR RARE AMOR URATES /LPF
[2020-01-09 22:24] LABS: AMPHETAMINE SCREEN, URINE NEGATIVE (NEGATIVE); BARBITURATE SCREEN URINE NEGATIVE (NEGATIVE); BENZODIAZEPINES SCREEN URINE NEGATIVE (NEGATIVE); CANNABINOID SCREEN, URINE NEGATIVE (NEGATIVE); COCAINE SCREEN URINE NEGATIVE (NEGATIVE); METHADONE STAT NEGATIVE (NEGATIVE); METHAMPHETAMINE SCREEN URINE S NEGATIVE (NEGATIVE); OPIATE SCREEN URINE NEGATIVE (NEGATIVE); OXYCODONE STAT NEGATIVE (NEGATIVE); PROPOXYPHENE STAT NEGATIVE (NEGATIVE); TRICYCLIC ANTIDEPRESSANTS SCRE NEGATIVE (NEGATIVE)
[2020-01-09 22:25] LABS: INR 0.9 (0.8-1.4)
[2020-01-09] MEDS ORDERED: OMEP20CA18 PO (22:50)
[2020-01-09] MEDS ORDERED: SUCR1TAB36 PO (22:50)
[2020-01-10 00:14] VITALS: BP 128/64
== END 2020-01-10 00:15 | disposition home or self-care (01) ==
LOC: EDUNIT# 21:09 → ER 21:11
DX: K29.70 Gastritis, unspecified, without bleeding (principal); K21.9 Gastro-esophageal reflux disease without esophagitis
CPT/HCPCS: 36415; 71045; 80053; 80306; 81000; 83690; 83735; 83874; 84484; 84703; 85025; 85379; 85610; 85730; 93005; 93041

== ENCOUNTER 2020-01-11 09:09 | Outpatient (CLI) | payer BC ==
[~2020-01-11] VITALS: Ht 157.5 cm; Wt 92.3 kg
[~2020-01-11 09:09] MED LIST changes: +OMEP20CA18 PO; +SUCR1TAB36 PO
== END 2020-01-11 10:41 | disposition home or self-care (01) ==
LOC: PREOP 09:09
PROVIDERS: ATTEND Surgery
DX: Z01.818 Encounter for other preprocedural examination (principal)

== ENCOUNTER 2020-01-12 12:20 | Day surgery (SDC) | payer BC ==
[~2020-01-12] VITALS: Ht 157.5 cm; Wt 92.3 kg
[~2020-01-12 12:20] MED LIST changes: +LACTATED RINGERS 1,000 ML IV ONE
[2020-01-12] MEDS ORDERED: LACTATED RINGERS 1,000 ML IV STA (12:22)
[2020-01-12] MEDS ORDERED: HURRICAINE EXT TUBE (BENZOCAINE) XX PRN (12:30)
[2020-01-12 12:35] VITALS: BP 136/73
--- NOTE | 2020-01-12 12:53 | Progress Note-Pre Operative ---
Pre-Operative Progress Note H&P Reviewed The H&P was reviewed, patient examined and no changes noted. Date Seen by Provider: Jan 12, 2020 Time Seen by Provider: 12:31 Date H&P Reviewed: Jan 12, 2020 Time H&P Reviewed: 12:31 Pre-Operative Diagnosis: Epigastric Abdominal Pain JEFF LAWLER DO Jan 12, 2020 12:32
[2020-01-12] MEDS ORDERED: proPOfol 200 MG/20 ML (DIPRIVAN) VIAL IV ONE (12:59)
[2020-01-12] MEDS ORDERED: MIDAZOLAM 2 MG/2 ML (VERSED) VIAL ONE (12:59)
[2020-01-12 13:20] VITALS: BP 148/77
--- NOTE | 2020-01-12 13:24 | Progress Note-Post Operative ---
Post-Operative Progess Note Surgeon (s)/Small Electric Engine Technician (s) Surgeon JEFF LAWLER DO Small Electric Engine Technician: NA Pre-Operative Diagnosis Epigastric Abdominal Pain Post-Operative Diagnosis Reflux Esophagitis Procedure & Operative Findings Date of Procedure 01/12/20 Procedure Performed/Findings EGD with Biopsies Anesthesia Type per GLOBAL TRANSPORTATION MANAGER Estimated Blood Loss Estimated blood loss (mL): None Specimens/Packing Specimens Removed Biopsy of the Antrum and GE Junction JEFF LAWLER DO Jan 12, 2020 13:24
[2020-01-12 13:25] VITALS: BP 141/68
--- NOTE | 2020-01-12 13:27 | Discharge Inst-Simple/Standard ---
Discharge Inst-Standard Patient Instructions/Follow Up Plan of Care/Instructions/FU: Patient is to follow up in 2 weeks with Mara. Continue current medication regimen. If promblems arise please be seen at that time. Activity as Tolerated: Yes Discharge Diet: Regular Diet JEFF LAWLER DO Jan 12, 2020 13:27
--- NOTE | 2020-01-12 13:28 | Anesthesia-General Post-Op ---
MAC Patient Condition Mental Status/LOC: Same as Preop Cardiovascular: Satisfactory Nausea/Vomiting: Absent Respiratory: Satisfactory Pain: Controlled Complications: Absent Post Op Complications Complications None Follow Up Care/Instructions Patient Instructions None needed. Anesthesiology Discharge Order Discharge Order Patient is doing well, no complaints, stable vital signs, no apparent adverse anesthesia problems. No complications reported per nursing. KALEY RODNEY CRNA Jan 12, 2020 13:28
[2020-01-12 13:30] VITALS: BP 141/68
[2020-01-12 13:56] VITALS: BP 132/58
--- NOTE | 2020-01-12 21:49 | OPERATIVE REPORT ---
DATE OF SERVICE: 01/12/2020 PREOPERATIVE DIAGNOSIS: Epigastric abdominal pain. POSTOPERATIVE DIAGNOSIS: Reflux esophagitis. PROCEDURE: EGD with biopsies. SURGEON: Jeff Terry DO ANESTHESIA: Per PROJECT INTERNSHIP. ESTIMATED BLOOD LOSS: None. COMPLICATIONS: None. INDICATIONS: The patient is a 49-year-old female who had epigastric abdominal pain and was recommended to have EGD. She understands risks and benefits of procedure and wished to proceed with procedure. Consent was signed in the chart. DESCRIPTION OF PROCEDURE: The patient was taken to the endoscopy suite, placed in left lateral recumbent position. Timeout was performed. Scope was inserted in mouth, down the esophagus, stomach and into the duodenum without difficulty. There were no polyps, masses or ulcerations within the duodenum. Scope was slowly retracted back into the stomach where it was further insufflated. Biopsy of the antrum was obtained. There were no polyps, masses or ulcerations. Scope was retroflexed noting no other pathology. Scope was returned to its normal position, slowly withdrawn to the distal esophagus. Biopsy of the GE junction was obtained. There was some slight erythematous changes present consistent with reflux esophagitis. Scope was then slowly retracted back until completely removed noting no other pathology. The patient tolerated the procedure well without any complications. RECOMMENDATIONS: The patient will follow up in 2 weeks. The patient will continue on current medications. Job ID: [id number] DocumentID: [id number] Dictated Date: 01/12/2020 13:27:00 Service Department Manager Date: 01/12/2020 21:48:17 Dictated By: JEFF TERRY DO
== END 2020-01-12 13:55 | disposition home or self-care (01) ==
LOC: ENDO 12:20
PROVIDERS: ATTEND Surgery
DX: K21.0 Gastro-esophageal reflux disease with esophagitis (principal); K31.89 Other diseases of stomach and duodenum; E66.9 Obesity, unspecified; Z79.899 Other long term (current) drug therapy; Z90.49 Acquired absence of other specified parts of digestive tract; Z68.37 Body mass index [BMI] 37.0-37.9, adult; Z82.49 Family history of ischemic heart disease and other diseases of the circulatory system
CPT/HCPCS: 88305

== ENCOUNTER → 2023-02-24 | Outpatient (CLI) | payer BC ==
[~2023-02-24] MED LIST changes: +CYCL10TA25 PO; -CYCL10TA9 PO; -LACTATED RINGERS 1,000 ML IV ONE
== END ==
LOC: CARD 14:01
PROVIDERS: ATTEND Internal Medicine Cardiovascular Disease
DX: R07.89 Other chest pain (principal)
CPT/HCPCS: 93306

== ENCOUNTER → 2023-03-16 | Outpatient (CLI) | payer BC ==
[~2023-03-16] MED LIST changes: +CATHETER FLUSH 10 ML SYR IVP PRN; +REGADENOSON 0.4 MG/5 ML SYR (LEXISCAN) IV ONE
[2023-03-16 13:47] VITALS: BP 130/76
--- NOTE | 2023-03-19 17:29 | STRESS TEST ---
DATE OF SERVICE: 03/16/2023 RESTING AND POST REGADENOSON TECHNETIUM-99M TETROFOSMIN SPECT CT IMAGING ORDERING PHYSICIAN: Chiqui Reeder APRN PRIMARY PHYSICIAN: Dr. Jama. CLINICAL DIAGNOSIS: Chest discomfort. FINDINGS: Baseline images were carried out after injection of 10.95 mCi of technetium-99m tetrofosmin. This was followed by 0.4 mg regadenoson and 30.7 mCi of technetium-99m tetrofosmin for stress imaging. The electrocardiogram showed sinus rhythm at baseline and it did not change significantly with the regadenoson infusion. The patient tolerated the procedure well. Review of images at rest and following stress indicates a small anterolateral perfusion defect, which appears transient. Gated images show normal global left ventricular systolic function with normal regional wall motion. Left ventricular ejection fraction is calculated to be 59%. CONCLUSIONS: 1. The study is suggestive of a small amount of anterolateral ischemia (SDS is 4). 2. Normal regional wall motion. 3. Normal global left ventricular systolic function with a calculated ejection fraction of 59%. Job ID: [id number] DocumentID: [id number] Dictated Date: 03/19/2023 12:54:18 General Sales Manager Date: 03/19/2023 17:27:00 Dictated By: SERENA UGALDE MD; JARED; FACP; FACC;
== END ==
LOC: CARD 11:57
PROVIDERS: ATTEND Nurse Practitioner Family
DX: R07.89 Other chest pain (principal)
CPT/HCPCS: 78452; 93017; A9502

== ENCOUNTER 2023-03-30 11:18 | Day surgery (SDC) | payer BC ==
[2023-03-30] VITALS (13 sets, daily range): BP systolic 117–148; BP diastolic 64–80
[~2023-03-30] VITALS: Ht 157.5 cm; Wt 91.8 kg
[~2023-03-30 11:18] MED LIST changes: -CATHETER FLUSH 10 ML SYR IVP PRN; -REGADENOSON 0.4 MG/5 ML SYR (LEXISCAN) IV ONE
[2023-03-30] MEDS ORDERED: NS IV 1000 ML 1,000 ML ONE (11:42)
[2023-03-30] MEDS ORDERED: LIDOCAINE 1% INJ 20 ML VIAL ONE (11:42)
[2023-03-30] MEDS ORDERED: HEParin (CATH LAB) 2,000 ML IV ONE (11:42)
[2023-03-30] MEDS ORDERED: NS IV 1000 ML 1,000 ML IV SCH (11:45)
[2023-03-30] MEDS ORDERED: METO-351 PO (12:04)
[2023-03-30] MEDS ORDERED: ASPI-999 PO (12:04)
[2023-03-30 12:29] LABS: HEMATOCRIT 38 % (35-52); HEMOGLOBIN 12.9 g/dL (11.5-16.0); MEAN CORPUSCULAR HEMOGLOBIN 30 pg (25-34); MEAN CORPUSCULAR HGB CONC 34 g/dL (32-36); MEAN CORPUSCULAR VOLUME 89 fL (80-99); MEAN PLATELET VOLUME 9.1 fL (9.0-12.2); PLATELET COUNT 323 10^3/uL (130-400); WHITE BLOOD COUNT 8.3 10^3/uL (4.3-11.0)
[2023-03-30 12:38] LABS: INR 0.9 (0.8-1.4); PROTHROMBIN TIME PATIENT 12.8 SEC (12.2-14.7)
[2023-03-30 12:48] LABS: ALBUMIN 4.1 GM/DL (3.2-4.5); BILIRUBIN,TOTAL 0.3 MG/DL (0.1-1.0); CALCIUM 9.4 MG/DL (8.5-10.1); CREATININE SERUM 0.74 MG/DL (0.60-1.30); POTASSIUM 4.3 MMOL/L (3.6-5.0); TOTAL PROTEIN 7.5 GM/DL (6.4-8.2)
[2023-03-30] MEDS ORDERED: VERAPAMIL 5 MG/2 ML (CALAN) VIAL IV ONE (17:01)
[2023-03-30] MEDS ORDERED: NITRO DRIP 25000 MCG/D5W 250 ML IV ONE (17:01)
[2023-03-30] MEDS ORDERED: MIDAZOLAM 5 MG/5 ML (VERSED) VIAL ONE (17:01)
[2023-03-30] MEDS ORDERED: fentaNYL INJ 100 MCG/2 ML AMP ONE (17:01)
[2023-03-30] MEDS ORDERED: HEParin 1000 UNIT/ML (10ML VIAL) FOR BOLUS ONE (17:01)
[2023-03-30] MEDS ORDERED: diphenhydrAMINE 50 MG/ML INJ (BENADRYL) ONE (18:08)
--- NOTE | 2023-03-30 18:46 | Cardiac Procedure Note-CS/ASA ---
Pre-Procedure Note Pre-Op Procedure Note Date of Available H&P: March 26, 2023 Date H&P Reviewed: March 30, 2023 Time H&P Reviewed: 16:00 History & Physical: H&P Reviewed, No changes noted Moderate Sedation PreProcedure ASA Score 3 Airway Lungs Heart ASA score ASA 1: a normal healthy patient ASA 2: a patient with a mild systemic disease (mid diabetes, controlled hypertension, obesity ASA 3: a patient with a severe systemic disease that limits activity (angina, COPD, prior Myocardial infarction) ASA 4: a patient with an incapacitating disease that is a constant threat to life (CHF, renal failure) ASA 5: a moribund patient not expected to survive 24 hrs. (ruptured aneurysm) ASA 6: a declared brain- patient whose organs are being harvested. For emergent operations, add the letter E after the classification Mallampati Classification Grade 3 Sedation Plan Analgesia, Amnesia, Plan communicated to team members The patient is an appropriate candidate to undergo the planned procedure, sedation, and anesthesia. The patient immediately re-assessed prior to indication. SERENA UGALDE MD FACP FAC CCDS March 30, 2023 18:46
[2023-03-30] MEDS ORDERED: ATOR40TA70 PO (18:51)
--- NOTE | 2023-03-30 18:52 | Discharge Inst-Cardiology ---
Discharge Inst-Cardiac Discharge Medications New Medications: Atorvastatin Calcium (Atorvastatin Calcium) 40 Mg Tablet 40 MG PO DAILY, #30 TAB 5 Refills Continued Medications: Aspirin (Aspirin) 81 Mg Tab.chew 81 MG PO DAILY, TAB Metoprolol Succinate (Toprol Xl) 25 Mg Tab.er.24h 25 MG PO DAILY, TAB SERENA UGALDE MD [facility] CCDS March 30, 2023 18:52
--- NOTE | 2023-03-30 18:53 | Discharge Inst-Post CATH ---
Discharge Inst-CATH/EP Post Cardiac Cath/EP D/C Inst Follow Up/Plan F/u with Dr Polanco in 1-2 weeks ACTIVITY * Go Home directly and rest. * Limit activity of the leg (or wrist if it was used) for 7 days including aerobics, swimming, jogging, bicycling, etc. * Restrict stair-climbing for 7 days if possible, if not, climb up with your non-cath leg, then bring together on the same step. * Avoid lifting, pushing, pulling or excessive movement of the affected e xtremity for 7 days. * Customary sexual activity may be resumed after 2 days-use caution not to use a position that strains or causes pain to the affected extremity. * No driving for 24 hours. * NO SMOKING. * Avoid straining for bowel movements for 7 days. * Gentle walking on level ground is allowed. * Returning to work will depend on the type of procedure and the results. Your doctor will discuss this with you. CALL YOUR DOCTOR FOR ANY OF THE FOLLOWING: *If bleeding from the puncture site occurs- Apply gentle pressure to site with clean cloth and call your doctor or EMS. * If a knot or lump forms under the skin, increases in size, or causes pain. * If bruising appears to be worsening or moving further down your leg instead of disappearing. * Temperature above 101 F. CARE OF YOUR GROIN INCISION; * Bruising or purple discoloration of the skin near the puncture site is common. * You may shower only, no bathtub bathing for 5 days. Be careful to avoid slipping as your leg may feel stiff. * If a closure device was used on your femoral artery, please see the attached guide regarding care of the device and your leg. * Leave dressing on FOR 24 hours. CARE OF YOUR WRIST INCISION; * Bruising or purple discoloration of the skin near the puncture site is common. * You may shower. * DO NOT submerge wrist. * Leave dressing on FOR 24 hours. SERENA POLANCO MD FACP FAC CCDS March 30, 2023 18:53
[2023-03-30] MEDS ORDERED: PATIENT MAY USE OWN MEDS, ALL PO SCH (19:00)
[2023-03-30] MEDS ORDERED: ACETAMINOPHEN 325 MG TABLET PO PRN (19:00)
--- NOTE | 2023-03-30 19:07 | Cardiac Cath Report ---
CARDIAC CATHETERIZATION DATE OF PROCEDURE: 03-30-23 INDICATION: Abnormal stress test HISTORY: The patient is a 52 year old female with chest discomfort and abnormal stress test PROCEDURES PERFORMED: 1. Cor angio; 2. LHC PROCEDURE DESCRIPTION: After informed consent and in the fasting state, left heart catheterization was performed through the R femoral artery utilizing a 5 [place] system by percutaneous approach (after failed attempt at R radial artery approach - couldn't advance wire). Standard Sumi catheters (JL 3.5 for L cor, and JR 4 for R cor and LHC) were utilized for the diagnostic portion of the procedure. HEMODYNAMICS: LVEDP 13 mmHg; no significant pressure gradient on pullback across the aortic valve CORONARY ANGIOGRAPHY: Left main coronary artery: Ok Left anterior descending coronary artery: 40-50% mid vessel with iFR 0.92 (hemodynamically nonsignificant) Left circumflex coronary artery: Diminutive, nondominant, Ok Right coronary artery: Large, dominant, Ok LV Angiogram: LVEF 55-6%, no wall motion abnormality in the THOMAS projection iFR LAD: Guide 6F L3.5, pressure wire, iFR 0.92 IMPRESSION: 1. Mild CAD: LAD 40-50% mid-vessel with iFR 0.92, RCA dominant 2. LVEF 55-60% 3. LVEDP 13 mmHg PLAN Continue ASA and metoprolol succinate Add statin Risk factor mod reviewed Outpt f/u advised SERENA UGALDE MD [facility] CCDS March 30, 2023 19:07
[2023-03-30] MEDS: NS IV 1000 ML 1,000 ML IV SCH (20:45)
[2023-03-31] VITALS: BP_SYST 111; BP_SYST 124; BP_DIAS 56; BP_DIAS 65
[2023-03-31 01:00] VITALS: BP 116/58
[2023-03-31 02:00] VITALS: BP 123/66
[2023-03-31 03:00] VITALS: BP 124/59
[2023-03-31 04:00] VITALS: BP 132/67
[2023-03-31] MEDS: NS IV 1000 ML 1,000 ML IV SCH (05:09)
[2023-03-31 06:25] VITALS: BP 125/62
== END 2023-03-31 06:32 | disposition home or self-care (01) ==
LOC: CATH 11:18 → CSD 19:15 → CATH 03-31 06:32
PROVIDERS: ATTEND Internal Medicine Cardiovascular Disease
DX: I25.10 Atherosclerotic heart disease of native coronary artery without angina pectoris (principal); E66.9 Obesity, unspecified; R42 Dizziness and giddiness; R07.89 Other chest pain; R94.39 Abnormal result of other cardiovascular function study; Z68.37 Body mass index [BMI] 37.0-37.9, adult
CPT/HCPCS: 36415; 80053; 80061; 85027; 85610; 85730; 87081; 93005; 93458

== ENCOUNTER 2023-04-07 15:19 | Emergency (ER) | payer BC ==
[~2023-04-07] VITALS: Ht 157 cm; Wt 91.8 kg
[~2023-04-07 15:19] MED LIST changes: +ASPI-999 PO; +ATOR40TA70 PO; +METO-351 PO
[2023-04-07 15:30] VITALS: BP 146/76
[2023-04-07] MEDS ORDERED: diphenhydrAMINE 25 MG TAB (BENADRYL) PO ONE (15:45)
--- NOTE | 2023-04-07 15:56 | ED Integumentary General ---
General Chief Complaint: Skin/Wound Problems Stated Complaint: HIVES ON ARMS Source: patient Exam Limitations: no limitations History of Present Illness Date Seen by Provider: April 07, 2023 Time Seen by Provider: 15:30 Initial Comments 52-year-old female presents to the ER with complaints of rash to right arm and right upper leg. She also reports feeling as though both of her arms are swollen. She felt tingling in her right arm earlier today, and pain in her lower left arm earlier today. Denies pain in her arm currently. She states the rash is itchy. The rash has been there for a day and a half. She has not taken any Benadryl. She denies fevers. Denies throat swelling and tongue swelling. Patient reports she was outside over the weekend, denies known contact with poison libra or other plant. She had a cardiac cath completed on 03/30/2023 which showed 40% blockage. She was started on atorvastatin at that time. She also takes metoprolol and a baby aspirin. Allergies and Home Medications Allergies Coded Allergies: No Known Drug Allergies (Unverified , 09/30/18) Patient Home Medication List Home Medication List Reviewed: Yes Aspirin (Aspirin) 81 Mg Tab.chew, 81 MG PO DAILY, (Reported) Entered as Reported by: WYATT RODRIGUEZ on 03/30/23 1204 Atorvastatin Calcium (Atorvastatin Calcium) 40 Mg Tablet, 40 MG PO DAILY Prescribed by: SERENA UGALDE on 03/30/23 1851 Methylprednisolone (Methylprednisolone Dose Pack) 4 Mg Tab.ds.pk, 4 MG PO UD Prescribed by: Noemi Atkins on 04/07/23 1558 Metoprolol Succinate (Toprol Xl) 25 Mg Tab.er.24h, 25 MG PO DAILY, (Reported) Entered as Reported by: WYATT RODRIGUEZ on 03/30/23 1204 Review of Systems Review of Systems Constitutional: see HPI Past Cqbsshb-Vahvqs-Svjuii Hx Patient Social History Tobacco Use?: No Use of E-Cig and/or Vaping dev: No Substance use?: No Alcohol Use?: No Pt feels they are or have been: No Immunizations Up To Date Tetanus Booster (TDap): Less than 5yrs Seasonal Allergies Seasonal Allergies: No Past Medical History Surgery/Hospitalization HX: PMH-HTN, HIGH CHOLESTEROL SURG HEART CATH ON 03/30/23 Surgeries: Yes (D & C) Gallbladder Respiratory: No Cardiac: No Neurological: No Reproductive Disorders: No [employer] J[employer] History: Menopausal Sexually Transmitted Disease: No HIV/AIDS: No Genitourinary: No Gastrointestinal: Yes Gastroesophageal Reflux Musculoskeletal: No Endocrine: No Loss of Vision: Bilateral Hearing Impairment: Denies Cancer: No Psychosocial: No Integumentary: No Blood Disorders: No Adverse Reaction/Blood Tranf: No (N/A) Physical Exam Vital Signs Vital Signs - First Documented 04/07/23 15:30 Temp 37.3 Pulse 95 Resp 16 B/P (MAP) 146/76 (99) Pulse Ox 98 O2 Delivery Room Air Capillary Refill : General Appearance: WD/WN, no apparent distress Neck: supple, normal inspection Cardiovascular: regular rate, rhythm Respiratory: lungs clear, normal breath sounds, no respiratory distress, no accessory muscle use Extremities: normal inspection, other (Arms do not appear swollen) Neurologic/Psychiatric: alert, normal mood/affect Skin: normal color, warm/dry Skin Problem Location: upper extremities (Right arm), lower extremities (Right upper leg) Skin Problem Character: erythema, papules, rash Progress/Results/Core Measures Results/Orders My Orders Orders - NOEMI ATKINS APRN Diphenhydramine Tablet (Benadryl Tablet) (04/07/23 15:45) Medications Given in ED Current Medications Medications Dose Ordered Sig/Braxton Route Start Time Stop Time Status Last Admin Dose Admin Diphenhydramine HCl 25 mg ONCE ONCE PO 04/07/23 15:45 04/07/23 15:46 DC 04/07/23 15:51 25 MG Vital Signs/I&O 04/07/23 15:30 Temp 37.3 Pulse 95 Resp 16 B/P (MAP) 146/76 (99) Pulse Ox 98 O2 Delivery Room Air Progress Progress Note : Progress Note Patient seen and evaluated, resting comfortably in bed, no acute distress. Based on exam and symptoms, this appears like a contact dermatitis looks like poison libra, patient denies contact with poison libra though. We will treat with Benadryl here and discharged with Medrol Dosepak. Patient instructed to take Benadryl as needed for itching as well as use [id number] hydrocortisone cream. Discharge instructions and return precautions provided. Departure Impression Primary Impression: Allergic contact dermatitis Qualified Codes: L23.9 - Allergic contact dermatitis, unspecified cause Disposition: HOME, SELF-CARE Condition: Stable Departure-Patient Inst. Decision time for Depature: 15:56 Referrals: SHARON WILSON MD (PCP/Family) Primary Care Physician Patient Instructions: Contact Dermatitis (DC) Add. Discharge Instructions: Complete full course of Medrol Dosepak as prescribed. You may take Benadryl as needed for itching. Get hydrocortisone cream [id number] and use twice daily until rash improves. Follow-up with primary care provider if rash does not improve after Medrol Dosepak. Return for swollen throat, swollen tongue, swollen lips, severe shortness of breath, fever, or any other new, concerning, or worsening symptoms. All discharge instructions reviewed with patient and/or family. Voiced understanding. Scripts Methylprednisolone (Methylprednisolone Dose Pack) 4 Mg Tab.ds.pk 4 MG PO UD for 6 Days, #21 PKG 0 Refills PER DOSE PACK INSTRUCTIONS Prov: NOEMI ATKINS APRN 04/07/23 NOEMI ATKINS APRN April 07, 2023 15:56
[2023-04-07] MEDS ORDERED: METH4TAB10 PO (15:58)
== END 2023-04-07 16:02 | disposition home or self-care (01) ==
LOC: EDUNIT# 15:19 → ER 15:20
DX: L23.9 Allergic contact dermatitis, unspecified cause (principal); I10 Essential (primary) hypertension; E78.00 Pure hypercholesterolemia, unspecified; Z98.61 Coronary angioplasty status; Z79.899 Other long term (current) drug therapy; Z79.82 Long term (current) use of aspirin
CPT/HCPCS: 99283

== ENCOUNTER 2023-05-23 19:25 | Emergency (ER) | payer BC ==
[~2023-05-23] VITALS: Ht 157 cm; Wt 95.2 kg
[~2023-05-23 19:25] MED LIST changes: +METH4TAB10 PO
--- NOTE | 2023-05-23 19:55 | ED Abdominal Pain ---
General Stated Complaint: RIGHT SIDE ABD PAIN Source of Information: Patient Exam Limitations: No Limitations History of Present Illness Date Seen by Provider: May 23, 2023 Time Seen by Provider: 19:52 Initial Comments Patient is a 52-year-old female presents ED with right-sided upper abdominal pain. This pain started this morning around 830 when she woke up. Pain described as sharp and intermittent. Patient states she feels like she is suffocating and short of breath with this pain. She denies of any specific cough or chest pain. She denies nausea, vomiting, diarrhea, dysuria, hematuria. No history of previous abdominal surgery. Had a cardiac cath [address] Person which did not result in any stent placement. Denies hypertension or diabetes. Denies of any specific injury. She states she does not feel well over the past few days. Denies taking thing at home for pain. She denies fever, chills, body aches, headache, dizziness, visual changes, sore throat, ear pain, dysuria. Allergies and Home Medications Allergies Coded Allergies: No Known Drug Allergies (Unverified , 09/30/18) Patient Home Medication List Home Medication List Reviewed: Yes Aspirin (Aspirin) 81 Mg Tab.chew, 81 MG PO DAILY, (Reported) Entered as Reported by: WYATT ORDRIGUEZ on 03/30/23 1204 Atorvastatin Calcium (Atorvastatin Calcium) 40 Mg Tablet, 40 MG PO DAILY Prescribed by: SERENA UGALDE on 03/30/23 185 Methylprednisolone (Methylprednisolone Dose Pack) 4 Mg Tab.ds.pk, 4 MG PO UD Prescribed by: Noemi Tran on 04/07/23 1558 Metoprolol Succinate (Toprol Xl) 25 Mg Tab.er.24h, 25 MG PO DAILY, (Reported) Entered as Reported by: WYATT RODRIGUEZ on 03/30/23 1204 Review of Systems Review of Systems Constitutional: No chills, No diaphoresis, No fever, No malaise, No weakness EENTM: No Double Vision, No Eye Pain Respiratory: Denies Cough, Denies Orthopnea; Shortness of Air Cardiovascular: Denies Chest Pain Gastrointestinal: Abdominal Pain; Denies Diarrhea, Denies Nausea, Denies Vomiting Genitourinary: Denies Discharge Musculoskeletal: No back pain, No joint pain, No muscle stiffness Skin: No change in color, No change in hair/nails Psychiatric/Neurological: Denies Depressed All Other Systems Reviewed Negative Unless Noted: Yes Past Ynibphj-Zvgpus-Xizjtj Hx Immunizations Up To Date Tetanus Booster (TDap): Less than 5yrs Seasonal Allergies Seasonal Allergies: No Past Medical History Surgery/Hospitalization HX: PMH-HTN, HIGH CHOLESTEROL SURG HEART CATH ON 03/30/23 Surgeries: Yes (D & C) Gallbladder Respiratory: No Cardiac: No Neurological: No 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 9.0oz. 91.353655eo; 37.00 BMI Method:Stated General Appearance: WD/WN, no apparent distress HEENT: PERRL/EOMI, normal ENT inspection, TMs normal, pharynx normal Neck: non-tender, full range of motion, supple Respiratory: chest non-tender, lungs clear, normal breath sounds, no respiratory distress, no accessory muscle use Cardiovascular: regular rate, rhythm, no edema, no gallop, no JVD Gastrointestinal: normal bowel sounds, soft, no organomegaly, tenderness (Right upper quadrant, right lateral upper abdominal tenderness. Normal bowel sounds. 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, no motor/sensory deficits, alert, normal mood/affect, oriented x 3 Skin: normal color, warm/dry Progress/Results/Core Measures Results/Orders Lab Results Laboratory Tests Test 05/23/23 19:43 05/23/23 19:50 Range/Units Urine Color YELLOW Urine Clarity CLEAR Urine pH 5.5 5-9 Urine Specific [place] >=1.030 1.016-1.022 Urine Protein NEGATIVE NEGATIVE Urine Glucose (UA) NEGATIVE NEGATIVE Urine Ketones NEGATIVE NEGATIVE Urine Nitrite NEGATIVE NEGATIVE Urine Bilirubin NEGATIVE NEGATIVE Urine Urobilinogen 0.2 < = 1.0 MG/DL Urine Leukocyte Esterase TRACE H NEGATIVE Urine RBC (Auto) 1+ H NEGATIVE Urine RBC RARE /HPF Urine WBC 2-5 /HPF Urine Squamous Epithelial Cells 2-5 /HPF Urine Crystals PRESENT H /LPF Urine Amorphous Sediment FEW ALEXY URATES H /LPF Urine Bacteria FEW H /HPF Urine Casts NONE /LPF Urine Mucus SMALL H /LPF Urine Culture Indicated YES White Blood Count 10.8 4.3-11.0 10^3/uL Red Blood Count 4.26 3.80-5.11 10^6/uL Hemoglobin 12.6 11.5-16.0 g/dL Hematocrit 39 35-52 % Mean Corpuscular Volume 91 80-99 fL Mean Corpuscular Hemoglobin 30 25-34 pg Mean Corpuscular Hemoglobin Concent 33 32-36 g/dL Red Cell Distribution Width 12.3 10.0-14.5 % Platelet Count 333 130-400 10^3/uL Mean Platelet Volume 9.2 9.0-12.2 fL Immature Granulocyte % (Auto) 0 % Neutrophils (%) (Auto) 67 42-75 % Lymphocytes (%) (Auto) 27 12-44 % Monocytes (%) (Auto) 5 0-12 % Eosinophils (%) (Auto) 1 0-10 % Basophils (%) (Auto) 0 0-10 % Neutrophils # (Auto) 7.2 1.8-7.8 10^3/uL Lymphocytes # (Auto) 2.9 1.0-4.0 10^3/uL Monocytes # (Auto) 0.5 0.0-1.0 10^3/uL Eosinophils # (Auto) 0.1 0.0-0.3 10^3/uL Basophils # (Auto) 0.0 0.0-0.1 10^3/uL Immature Granulocyte # (Auto) 0.0 0.0-0.1 10^3/uL D-Dimer 0.12 0.00-0.49 UG/ML Sodium Level 139 135-145 MMOL/L Potassium Level 3.5 L 3.6-5.0 MMOL/L Chloride Level 105 98-107 MMOL/L Carbon Dioxide Level 24 21-32 MMOL/L Anion Gap 10 5-14 MMOL/L Blood Urea Nitrogen 15 7-18 MG/DL Creatinine 0.85 0.60-1.30 MG/DL Estimat Glomerular Filtration Rate 82 BUN/Creatinine Ratio 18 Glucose Level 105 70-105 MG/DL Calcium Level 9.4 8.5-10.1 MG/DL Corrected Calcium 9.3 8.5-10.1 MG/DL Magnesium Level 2.0 1.6-2.4 MG/DL Total Bilirubin 0.4 0.1-1.0 MG/DL Aspartate Amino Transf (AST/SGOT) 15 5-34 U/L Alanine Aminotransferase (ALT/SGPT) 20 0-55 U/L Alkaline Phosphatase 64 40-136 U/L Troponin I < 0.028 <0.028 NG/ML B-Type Natriuretic Peptide 22.4 <100.0 PG/ML Total Protein 7.6 6.4-8.2 GM/DL Albumin 4.1 3.2-4.5 GM/DL Lipase 14 8-78 U/L My Orders Orders - L[facility] SEALS PA Ua Culture If Indicated (05/23/23 19:30) Cbc With Automated Diff (05/23/23 19:49) Comprehensive Metabolic Panel (05/23/23 19:49) Lipase (05/23/23 19:49) Magnesium (05/23/23 19:49) Fibrin Degradation Products (05/23/23 19:49) Troponin I Jose (05/23/23 19:49) Chest 1 View, Ap/Pa Only (05/23/23 19:49) Ekg Tracing (05/23/23 19:49) Bnp Jose (05/23/23 19:49) Urine Culture (05/23/23 19:43) Ct Abd/Pelvis Wo(Kidney Stone) (05/23/23 20:37) Vital Signs/I&O 05/23/23 19:40 Temp 37.0 Pulse 79 Resp 20 B/P (MAP) 156/82 (106) Pulse Ox 99 O2 Delivery Room Air Comment Sinus rhythm minimal voltage criteria for LVH, nonspecific T wave abnormality in V1. 70 bpm, QRS duration 89 MS, QTc 425 MS Departure Communication (PCP) Reviewed previous ER visits, H&P, lab testing. Differential diagnosis, nephrolithiasis, urolithiasis, pneumonia, PE, ACS. Patient had a cardiac cath in March that showed mild coronary artery disease. No stent placement. Patient presents to ED with right-sided upper lateral abdominal pain. Pain started this morning with intermittent sharp. Patient reports episodes of feeling like she is being suffocated. No specific chest pain, vomiting, diarrhea. History of cholecystectomy. Due to her current complaint EKG, cardiac work-up, added D- dimer, urinalysis, CBC, CMP, lipase. Patient lab work was grossly unremarkable. Urinalysis did note leukocytes and red blood cell without strong evidence of UTI. Currently culture pending. No urinary symptoms. EKG showed normal sinus rhythm without evidence of arrhythmia. ST elevation or pression. Patient did have a nonspecific T wave abnormality in V1. Chest x-ray was negative for pneumonia, pleural effusion. Mild venous congestion. Normal troponin, BMP and D-dimer. Normal white blood count, liver function and pancreatic function. Due to the continuous pain CT scan of the abdomen pelvis rule out nephrolithiasis. CT abdomen pelvis negative for acute abnormality. Discussed results with patient. There is no evidence of wheezing. She has no cough. No evidence of respiratory distress. Vital signs stable. No evidence of cardiac event. No surgical abdomen. Discussed other potential etiologies such as muscle spasming, costochondritis. Pain appears to be located to the lower ribs. If any worsening symptoms to return back to ED. Suggest follow-up your PCP in 2 to 3 days for reevaluation. Recommend heat compresses. May take anti- inflammatories. Did offer a muscle relaxer to see if this would help but she refused. No evidence of lower leg swelling. She does not appear toxic or se ptic. Impression Primary Impression: Abdominal pain Disposition: HOME, SELF-CARE Condition: Stable Departure-Patient Inst. Decision time for Depature: 21:18 Referrals: SHARON WILSON MD (PCP/Family) Primary Care Physician Patient Instructions: Abdominal Pain, Adult ED Add. Discharge Instructions: Recommend taking anti-inflammatories, warm compresses. If any worsening symptoms such as fever, vomiting, shortness of breath to return back to ED. Follow-up your PCP in 2 to 3 days. LAVERN SEALS May 23, 2023 19:55
[2023-05-23 20:01] LABS: BILIRUBIN,URINE NEGATIVE (NEGATIVE); CLARITY,URINE CLEAR; COLOR,URINE YELLOW; GLUCOSE, URINE (UA) NEGATIVE (NEGATIVE); KETONES,URINE NEGATIVE (NEGATIVE); LEUKOCYTE ESTERASE ,URINE TRACE (NEGATIVE); NITRITE,URINE NEGATIVE (NEGATIVE); PH,URINE 5.5 (5-9); PROTEIN,URINE NEGATIVE (NEGATIVE)
[2023-05-23 20:03] LABS: BASOPHILS % (AUTO) 0 % (0-10); EOSINOPHILS # (AUTO) 0.1 10^3/uL (0.0-0.3); EOSINOPHILS % (AUTO) 1 % (0-10); HEMATOCRIT 39 % (35-52); HEMOGLOBIN 12.6 g/dL (11.5-16.0); LYMPHOCYTES # (AUTO) 2.9 10^3/uL (1.0-4.0); LYMPHOCYTES % (AUTO) 27 % (12-44); MEAN CORPUSCULAR HEMOGLOBIN 30 pg (25-34); MEAN CORPUSCULAR HGB CONC 33 g/dL (32-36); MEAN CORPUSCULAR VOLUME 91 fL (80-99); MEAN PLATELET VOLUME 9.2 fL (9.0-12.2); MONOCYTES # (AUTO) 0.5 10^3/uL (0.0-1.0); MONOCYTES % (AUTO) 5 % (0-12); NEUTROPHILS # (AUTO) 7.2 10^3/uL (1.8-7.8); NEUTROPHILS % (AUTO) 67 % (42-75); PLATELET COUNT 333 10^3/uL (130-400); WHITE BLOOD COUNT 10.8 10^3/uL (4.3-11.0)
[2023-05-23 20:12] LABS: AMORPHOUS SEDIMENT,UR FEW AMOR URATES /LPF; BACTERIA,URINE FEW /HPF; RBC,URINE RARE /HPF
[2023-05-23 20:23] LABS: ALANINE AMINOTRANSFERASE 20 U/L (0-55); ALBUMIN 4.1 GM/DL (3.2-4.5); ALKALINE PHOSPHATASE 64 U/L (40-136); BILIRUBIN,TOTAL 0.4 MG/DL (0.1-1.0); BUN/CREATININE RATIO 18; CALCIUM 9.4 MG/DL (8.5-10.1); CARBON DIOXIDE 24 MMOL/L (21-32); CHLORIDE 105 MMOL/L (98-107); CREATININE SERUM 0.85 MG/DL (0.60-1.30); GFR ESTIMATED 82; GLUCOSE 105 MG/DL (70-105); LIPASE 14 U/L (8-78); POTASSIUM 3.5 MMOL/L (3.6-5.0); SODIUM 139 MMOL/L (135-145); TOTAL PROTEIN 7.6 GM/DL (6.4-8.2)
--- NOTE | 2023-05-23 21:00 | Diagnostic Imaging Report ---
INDICATION: 52-year-old female with shortness of breath. COMPARISONS: 01/09/2020 FINDINGS: Single view of the chest shows the cardiac contour to be normal. There is mild central venous congestion. No consolidations are seen. There is no effusion or pneumothorax. Soft tissues and bony thorax are unremarkable. IMPRESSION: 1. Mild central venous congestion. 2. No consolidations, effusion or pneumothorax seen. Dictated by: Dictated on workstation # [id number]
--- NOTE | 2023-05-23 21:06 | Diagnostic Imaging Report ---
PROCEDURE: CT urinary tract, rule out kidney stone. TECHNIQUE: Multiple contiguous axial images were obtained through the abdomen and pelvis without the use of intravenous contrast. Auto Exposure Controls were utilized during the CT exam to meet ALARA standards for radiation dose reduction. INDICATION: 52-year-old female with left lower quadrant abdominal pain COMPARISONS: 08/19/2018 FINDINGS: Lung bases clear. Cardiac contour is normal. Liver shows uniform attenuation. Gallbladder surgically absent. Spleen and GE junction are normal. Stomach and duodenal sweep are unremarkable. Pancreas shows sharp margins. Adrenals are normal. Kidneys appear normal in size, position and contour. There is no obstructive uropathy. Both ureters are seen intermittently through their course and appear unremarkable. There few pelvic phleboliths. Bladder is nondistended. Uterus and adnexa are unremarkable. Nonopacified loops of small bowel are normal. Appendix is normal. Large bowel contains fecal material and gas. Distal colon is mostly decompressed. There is no free air, free fluid or adenopathy. There is normal caliber of aorta, iliac and femoral arteries with normal origin of the visceral arteries. Bone windows show no overall gross abnormalities. IMPRESSION: 1. Surgical absence of the gallbladder. 2. No evidence of obstructive uropathy or appendicitis. No areas of peritoneal inflammation seen. Additional nonemergent findings as described above. Dictated by: Dictated on workstation # [id number]
[2023-05-23 21:30] VITALS: BP 148/82
== END 2023-05-23 21:30 | disposition home or self-care (01) ==
LOC: EDUNIT# 19:25 → ER 19:27
DX: R10.11 Right upper quadrant pain (principal); Z90.49 Acquired absence of other specified parts of digestive tract; Z28.310 Unvaccinated for COVID-19
CPT/HCPCS: 36415; 71045; 74176; 80053; 81000; 83690; 83735; 83880; 84484; 85025; 85379; 87088; 93005